=== PATIENT | female | born 1980 | race Caucasian/White ===

== ENCOUNTER 2017-01-11 09:20 | Inpatient (IN) | payer BC, MEDICAID ==
[2017-01-11] MEDS ORDERED: Lidocaine 1% 20 ML MDV INJECT ONE ×2 (09:37→10:20)
[2017-01-11] MEDS ORDERED: Sodium Chloride 0.9% 10 ML Syringe FLUSH PRN (09:48)
--- NOTE | 2017-01-11 09:55 | PCM.LDHP ---
L&D History of Present Illness - General Date of Service: 01/11/17 Admit Problem/Dx: Patient Status Order with Admit Dx/Problem 01/11/17 09:28 Admission Status [Patient Status] [ADT] Routine Admission Diagnosis/Problem Admission Diagnosis/Problem Source of Information: Patient, Old records History Limitations: Reports: No limitations - History of Present Illness Timing/Duration: Reports: minutes: (2) Location, : Reports: Uterus Quality: Reports: Ache Severity: moderate - Related Data Allergies/Adverse Reactions: Allergies Allergy/AdvReac Type Severity Reaction Status Date / Time No Known Allergies Allergy Verified 01/11/17 09:38 Home Medications: Home Meds [id number]/FA/Omega3/Dha/Fish Oil [ Gummies] 1 tab PO ,18 10/06/16 [ History] Acetaminophen [Tylenol] 650 mg PO Q4H PRN #60 tablet 10/07/16 [Rx] Azithromycin [Zithromax] 250 mg PO Q24H #3 tablet 10/07/16 [Rx] Past Medical History Respiratory History: Reports: Asthma Gastrointestinal History: Reports: GERD [employer]OT[employer] PRACTITIONER History: Reports: Other OB/BYN History: , 3 spont miscarages currently Psychiatric History: Reports: Anxiety - Past Surgical History HEENT Surgical History: Reports: Other (see below) Other HEENT Surgeries/Procedures: wisdom teeth removed Social & Family History - Family History Family Medical History: Noncontributory Psychiatric: Reports: Anxiety, Depression. Denies: Suicide attempt - Tobacco Use Smoking Status *Q: Former Smoker Years of Tobacco use: 15 Used Tobacco, but Quit: Yes Month Tobacco Last Used: may 2014 Second Hand Smoke Exposure: No - Caffeine Use Caffeine Use: Reports: None - Alcohol Use Days Per Week of Alcohol Use: 0 - Recreational Drug Use Recreational Drug Use: No Recreational Drug Type: Reports: Methamphetamine (see above) Other Recreational Drug Type: Pt urine was positive for amphetamines. MD is aware. - Sexual History Sexual History: Reports: Sexually active, Single partner, Vaginal intercourse - Living Situation & Occupation Living situation: Reports: Occupation: employed H&P Review of Systems - Review of Systems: Review Of Systems: See Below General: Denies: fever, chills HEENT: Denies: headaches Pulmonary: Denies: Shortness of Breath, Cough Cardiovascular: Denies: chest pain Gastrointestinal: Reports: Nausea, Vomiting. Denies: Abdominal pain, Diarrhea Genitourinary: Denies: dysuria Musculoskeletal: Reports: no symptoms Skin: Denies: rash Psychiatric: Reports: anxiety Neurological: Denies: Headache Hematologic/Lymphatic: Reports: no symptoms Immunologic: Reports: no symptoms L&D Exam - Exam Exam: See Below - Vital Signs Weight: 185 lb - OB Specific Fundal Height in cm: 40 Contraction Duration (sec): 45 Contraction Intensity: Moderate movement: active heart tones: present heart tones per min: 144 Heart Rate (FHR) Variability: Moderate (6-25 bmp) Presentation: Vertex - Blum Score Blum Score Effacement: >80% Blum Score Dilation: > 5 cm Blum Score 's Station: +1, +2 - Exam General: alert, oriented HEENT: Mucosa moist & pink Neck: supple Lungs: Clear to auscultation Cardiovascular: regular rate Abdomen: normal bowel sounds Rectal Exam: Normal exam Genitourinary: Normal external exam. No: Vaginal bleeding Extremities: normal inspection. No: edema Skin: No: rash Neurological: normal speech DTR: 2+: achilles (L), achilles (R) Psychiatric: normal mood - Problem List (1) Normal labor SNOMED Code(s): 16401823 ICD Code: O80 - ENCOUNTER FOR FULL-TERM UNCOMPLICATED DELIVERY; Z37.9 - OUTCOME OF DELIVERY, UNSPECIFIED Status: Acute Current Visit: Yes Problem Details: Healthy multip at term admitted in spontaneous labor. normal to date. Exam normal. FHTs normal. PCV block 8ml 1% lidocaine per side: good relief. Anticipate NVD. Problem List Initiated/Reviewed/Updated: Yes Orders Last 24hrs: Active Orders 24 hr Category Date Time Status Admission Status [Patient Status] [ADT] Routine ADT 01/11/17 09:28 Active Communication Order [RC] ASDIRECTED Care 01/11/17 09:48 Ordered Heart Tones [RC] PER UNIT ROUTINE Care 01/11/17 09:48 Ordered Notify Provider [RC] PRN Care 01/11/17 09:48 Ordered Up ad Svetlana [RC] ASDIRECTED Care 01/11/17 09:48 Ordered Clear Liquid Diet [DIET] Diet 01/11/17 Breakfast Ordered CBC WITH AUTO DIFF [HEME] AM Lab 01/12/17 05:11 Ordered Sodium Chloride 0.9% [Saline Flush] Med 01/11/17 09:48 Ordered 10 ml FLUSH ASDIRECTED PRN Electronic Heart Tones Ext w TOCO [WOMSER] Oth 01/11/17 10:00 Ordered INTERMITTENT Saline Lock Insert [OM.PC] Routine Ot 01/11/17 09:48 Ordered Medication Orders Sodium Chloride (Saline Flush) 10 ml FLUSH ASDIRECTED PRN PRN Reason: Keep Vein Open
--- NOTE | 2017-01-11 10:56 | PCM.DEL ---
L & D Note - General Info Date of Service: 01/11/17 Mother's Due Date: 01/15/17 - Delivery Note Labor: spontaneous, augmented by ARM Delivery Outcome: Livebirth Delivery Method: Spontaneous Vaginal Delivery Infant Delivery Mode: Spontaneous Presentation: Right Occiput Anterior (ASHLEY) Nuchal cord: none Prep: other Anesthesia Type: Other (see below) (paracervical) Anesthetic: lidocaine (xylocaine) 1% plain Local anesthetic volume: other (16ml) Amniotic Fluid Description: Clear Episiotomy Type: None Laceration: 1st degree, perineal Placenta: spontaneous Cord: 3 vessels Resuscitation needed: No : suctioned, bulb syringe, stimulated, warmed, blanket used, warmer used Score 1 min: 8 Score 5 min: 9 Second Stage Interventions: Reports: Pushing Effectively - General Info Date of Service: 01/11/17 Admission Dx/Problem (Free Text): Patient Status Order with Admit Dx/Problem 01/11/17 09:28 Admission Status [Patient Status] [ADT] Routine Admission Diagnosis/Problem Admission Diagnosis/Problem Subjective Update: pushing well with labor once complete. - Review of Systems General: Denies: Fever HEENT: Denies: headaches Pulmonary: Denies: shortness of breath Cardiovascular: Denies: Chest Pain Gastrointestinal: Reports: Nausea, Vomiting. Denies: Abdominal pain Genitourinary: Denies: dysuria Musculoskeletal: Denies: joint pain Skin: Denies: rash Neurological: Denies: Headache Psychiatric: Reports: anxiety - Patient Data Weight - most recent: 185 lb Med Orders - Current: Current Medications Sodium Chloride (Saline Flush) 10 ml FLUSH ASDIRECTED PRN PRN Reason: Keep Vein Open Discontinued Medications Lidocaine HCl (Xylocaine 1%) 20 ml INJECT ONETIME ONE Stop: 01/11/17 09:38 Lidocaine HCl (Xylocaine 1%) 20 ml INJECT ONETIME ONE Stop: 01/11/17 10:21 - Exam General: alert, oriented Neck: supple Lungs: Clear to auscultation Cardiovascular: Regular Rate, Regular Rhythm Abdomen: soft, no tenderness (Female) Exam: Normal external exam, Enlarged uterus Back Exam: full range of motion Extremities: no edema Peripheral Pulses: 2+: dorsalis pedis (L), dorsalis pedis (R) Skin: warm. No: rash Neurological: normal speech Psy/Mental Status: normal affect, normal mood - Problem List & Annotations (1) Normal labor SNOMED Code(s): 74610489 Code(s): O80 - ENCOUNTER FOR FULL-TERM UNCOMPLICATED DELIVERY; Z37.9 - OUTCOME OF DELIVERY, UNSPECIFIED Status: Acute Current Visit: Yes Annotation/Comment:: Healthy multip at term admitted in spontaneous labor. normal to date. Exam normal. FHTs normal. PCV block 8ml 1% lidocaine per side: good relief. Anticipate NVD. Spontaneous vaginal delivery of vigorous male . Spontaneous placenta, good fundal contraction with fundal massage. 2cm 1rst degree laceration requiring no sutures. EBL: 150ml. Mom and baby doing well. - Problem List Review Problem List Initiated/Reviewed/Updated: Yes - My Orders Last 24 Hours: My Active Orders 01/11/17 09:28 Admission Status [Patient Status] [ADT] Routine 01/11/17 09:48 Communication Order [RC] ASDIRECTED Heart Tones [RC] PER UNIT ROUTINE Notify Provider [RC] PRN Up ad Svetlana [RC] ASDIRECTED Sodium Chloride 0.9% [Saline Flush] 10 ml FLUSH ASDIRECTED PRN Saline Lock Insert [OM.PC] Routine 01/11/17 10:00 Electronic Heart Tones Ext w TOCO [WOMSER] INTERMITTENT 01/11/17 Breakfast Clear Liquid Diet [DIET] 01/12/17 05:11 CBC WITH AUTO DIFF [HEME] AM
[2017-01-11] MEDS: Ibuprofen 600 MG Tab PO PRN ×3 (11:55→23:00)
[2017-01-11] MEDS ORDERED: Acetaminophen/Codeine 300-30 MG Tab PO ONE (15:11)
[2017-01-11] MEDS ORDERED: Aluminum Hydroxide/Magnesium Hydroxide Susp 30 ML Cup PO PRN (18:45)
[2017-01-11] MEDS ORDERED: Famotidine 20 MG Tab PO SCH (21:00)
--- NOTE | 2017-01-12 08:50 | PCM.DCSUM1 ---
Discharge Summary - Hospital Course Free Text/Narrative:: Healthy multip admitted in labor at term. Normal vaginal delivery. Normal course. Discharge to home with healthy baby PEDROZA. - Discharge Data Discharge Date: 01/12/17 Discharge Disposition: Home, Self-Care 01 Condition: Good - Discharge Diagnosis/Problem(s) (1) Normal labor SNOMED Code(s): 70387791 ICD Code: O80 - ENCOUNTER FOR FULL-TERM UNCOMPLICATED DELIVERY; Z37.9 - OUTCOME OF DELIVERY, UNSPECIFIED Status: Acute Current Visit: Yes Problem Details: Healthy multip at term admitted in spontaneous labor. normal to date. Exam normal. FHTs normal. PCV block 8ml 1% lidocaine per side: good relief. Anticipate NVD. Spontaneous vaginal delivery of vigorous male . Spontaneous placenta, good fundal contraction with fundal massage. 2cm 1rst degree laceration requiring no sutures. EBL: 150ml. Mom and baby doing well. - Patient Instructions Diet: Regular Diet as Tolerated - Discharge Plan Home Medications: Home Meds Dgc650/FA/Omega3/Dha/Fish Oil [ Gummies] 1 tab PO 10/06/16 [ History] ALPRAZolam [Alprazolam] 0.5 mg PO DAILY PRN 01/11/17 [History] Sertraline HCl [Sertraline HCl] 25 mg PO DAILY 01/11/17 [History] Patient Handouts: Shaken Baby Syndrome, Jaundice, , Formula Feeding, Rooming-In With Your [place], Keeping Your Safe and Healthy, [id number], Depression and Baby Blues, Circumcision, Infant, Care After, [id number], Pain Relief During Labor and Delivery, Vaginal Delivery, Care After, Care After Vaginal Delivery - Discharge Summary/Plan Comment DC Time >30 min.: No Discharge Summary/Plan Comment: F/U appt. baby:2 wks, mom:6 wks. - Patient Data Vitals - Most Recent: Last Vital Signs Temp 98.1 F 01/11/17 16:00 Pulse 62 01/11/17 16:00 Resp 16 01/11/17 16:00 BP 108/67 01/11/17 16:00 Pulse Ox 98 01/11/17 16:00 Weight - Most Recent: 185 lb I&O - Last 24 hours: Intake & Output 0501/12/17 01/12/17 22:59 06:59 14:59 Intake Total 500 Balance 500 Lab Results - Last 24 hrs: Laboratory Results - last 24 hr 01/12/17 Range/Units 08:25 WBC 16.6 H (4.5-12.0) X10-3/uL RBC 3.96 (3.23-5.20) x10(6)uL Hgb 10.2 L (11.5-15.5) g/dL Hct 31.3 (30.0-51.3) % MCV 78.9 L (80-96) fL MCH 25.6 L (27.7-33.6) pg MCHC 32.5 (32.2-35.4) g/dL RDW 15.0 (11.5-15.5) % Plt Count 283 (125-369) X10(3)uL MPV 8.6 (7.4-10.4) fL Add Manual Diff Yes Neutrophils % (Manual) 78 (46-82) % Lymphocytes % (Manual) 18 (13-37) % Monocytes % (Manual) 4 (4-12) % Med Orders - Current: Current Medications Al Hydroxide/Mg Hydroxide (Mag-Al Susp) 30 ml PO Q4H PRN PRN Reason: Heartburn Last Admin: 01/11/17 19:04 Dose: 30 ml Famotidine (Pepcid) 40 mg PO BEDTIME [facility] Last Admin: 01/11/17 21:41 Dose: 40 mg Ibuprofen (Motrin) 600 mg PO Q4H PRN PRN Reason: Pain Last Admin: 01/11/17 23:00 Dose: 600 mg Multivit/Folic Acid/Iron (-U) 1 each PO DAILY [facility] Sodium Chloride (Saline Flush) 10 ml FLUSH ASDIRECTED PRN PRN Reason: Keep Vein Open Last Admin: 01/11/17 09:33 Dose: 10 ml Discontinued Medications Acetaminophen/Codeine Phosphate (Tylenol With Codeine No.3 300mg/30mg) 2 tab PO ONETIME ONE Stop: 01/11/17 15:12 Last Admin: 01/11/17 15:26 Dose: 2 tab Lidocaine HCl (Xylocaine 1%) 20 ml INJECT ONETIME ONE Stop: 01/11/17 09:38 Last Admin: 01/11/17 09:42 Dose: 20 ml Lidocaine HCl (Xylocaine 1%) 20 ml INJECT ONETIME ONE Stop: 01/11/17 10:21 Last Admin: 01/11/17 10:39 Dose: 20 ml *Q Meaningful Use (DIS) - VTE *Q VTE Criteria *Q: - Stroke *Q Stroke Criteria *Q: - AMI *Q AMI Criteria *Q:
[2017-01-12] MEDS: Ibuprofen 600 MG Tab PO PRN (08:59)
[2017-01-12] MEDS ORDERED: Prenatal Multivitamin with Calcium/Folic Acid/Fe Fumarate Cap PO SCH (09:00)
[2017-01-12 10:31] VITALS: BP 113/75
== END 2017-01-12 19:43 | disposition home or self-care (01) | DRG 560 ==
LOC: FB.OBCHECK 09:20 → FB.OB 09:20 → FB.OBCHECK 09:30 → FB.OB 01-12 08:46
PROVIDERS: ADMIT Family Medicine; ATTEND Family Medicine
PROC: 10E0XZZ Delivery of Products of Conception, External Approach (ICD-10-PCS; principal; 2017-01-11)
PROC: 10907ZC Drainage of Amniotic Fluid, Therapeutic from Products of Conception, Via Natural or Artificial Opening (ICD-10-PCS; 2017-01-11)
DX: O70.0 First degree perineal laceration during delivery (principal); Z3A.39 39 weeks gestation of pregnancy; Z37.0 Single live birth; O99.320 Drug use complicating pregnancy, unspecified trimester; O26.20 Pregnancy care for patient with recurrent pregnancy loss, unspecified trimester; F15.90 Other stimulant use, unspecified, uncomplicated; F41.9 Anxiety disorder, unspecified
CPT/HCPCS: 36415; 85025; A9270-GY; J7050